=== PATIENT | female | born 1935 | race American Indian/Alaskan Native ===

== ENCOUNTER 2017-04-05 07:28 | Day surgery (SDC) | payer OTHER, MEDICAID, MEDICARE ==
[2017-03-28 10:40] VITALS: BMI 15.5
[2017-04-05] MEDS ORDERED: Lidocaine 2% Inj (20ml) ONE (08:42)
[2017-04-05] MEDS ORDERED: Nitroglycerin 50mg in D5W 0 MG/0 ML BOTTLE IV ONE (08:43)
[2017-04-05] MEDS ORDERED: Midazolam 2 MG/2 ML VIAL ONE (09:01)
[2017-04-05 09:11] LABS: INR 1.08 (0.93-1.08); PROTHROMBIN TIME 11.7 Seconds (9.9-11.8)
[2017-04-05 10:19] LABS: ARTERIAL BLOOD GAS HCO3 28.6 mmol/L (21-28); ARTERIAL BLOOD GAS HEMOGLOBIN 11.6 g/dL (11.7-17.4); ARTERIAL BLOOD GAS O2 CAPACITY 15.7 mL/dl (16-24); ARTERIAL BLOOD GAS O2 CONTENT 11.8 ML/dl (15-23); ARTERIAL BLOOD GAS O2 SAT 75.1 % (95-98); ARTERIAL BLOOD GAS PCO2 53 mm/Hg (35-45); ARTERIAL BLOOD GAS PH 7.34 (7.35-7.45); ARTERIAL BLOOD GAS TCO2 30.2 mmol.L (22-28)
[2017-04-05 10:22] LABS: ARTERIAL BLOOD GAS HCO3 29.3 mmol/L (21-28); ARTERIAL BLOOD GAS HEMOGLOBIN 10.8 g/dL (11.7-17.4); ARTERIAL BLOOD GAS O2 CAPACITY 14.7 mL/dl (16-24); ARTERIAL BLOOD GAS O2 CONTENT 11.3 ML/dl (15-23); ARTERIAL BLOOD GAS O2 SAT 76.8 % (95-98); ARTERIAL BLOOD GAS PCO2 53 mm/Hg (35-45); ARTERIAL BLOOD GAS PH 7.35 (7.35-7.45); ARTERIAL BLOOD GAS TCO2 30.9 mmol.L (22-28)
[2017-04-05 10:25] LABS: ARTERIAL BLOOD GAS HCO3 24.8 mmol/L (21-28); ARTERIAL BLOOD GAS HEMOGLOBIN 10.8 g/dL (11.7-17.4); ARTERIAL BLOOD GAS O2 CAPACITY 15.3 mL/dl (16-24); ARTERIAL BLOOD GAS O2 CONTENT 15.3 ML/dl (15-23); ARTERIAL BLOOD GAS O2 SAT 99.9 % (95-98); ARTERIAL BLOOD GAS PCO2 46 mm/Hg (35-45); ARTERIAL BLOOD GAS PH 7.34 (7.35-7.45); ARTERIAL BLOOD GAS TCO2 26.2 mmol.L (22-28)
[2017-04-05 12:18] VITALS: RESP 18; TEMP 97.1
[2017-04-05 14:35] VITALS: O2SAT 99
[2017-04-05 16:04] VITALS: BP 127/63; PULSE 68
--- NOTE | 2017-04-05 16:42 | CARD ---
APPROVED REPORT Procedure(s) performed: Complete Heart Catheterization HISTORY The patient is a 81 year-old female with a history of : most recent EF: 55%. (EF Method: Echocardiogram), hypertension , dyslipidemia . INDICATION The indication(s) include : pre-op clearance, abnormal ECG, valvular heart disease, other cardiac indications: Evaluation for . CASE TECHNIQUE The patient was brought electively to the Cardiac Catheterization Laboratory in a fasting state and was prepped and draped in a sterile manner. The right femoral groin was infiltrated with 2% Lidocaine subcutaneous anesthesia. A 6 Fr , 7 Fr sheath was inserted into the right femoral artery without difficulty. Coronary angiography was performed using coronary diagnostic catheters. The left coronary system was accessed and visualized with a Diagnostic catheter. The right coronary system was accessed and visualized with a Diagnostic catheter. The left ventricle was accessed and visualized with a [place] catheter. Left ventricular/Aortic Valve gradient assessed on pullback. An aortogram of the ascending aorta was performed. A Right Heart Catheterization was performed with a 7 Fr. [place]-Rayray catheter and pressure were recorded. A 7 sheath was inserted into the right femoral vein without difficulty. Coronary angiography was performed using coronary diagnostic catheters. Cardiac outputs were obtained by the Thermal Dilution method. Closure device was deployed with a 6 Fr Mynx without any complications. The patient tolerated the procedure well and there were no complications associated with the procedure. Vessel Analysis The patient's coronary anatomy is right dominant. The left main coronary artery is a large size vessel with intimal irregularities. The left main bifurcates to the left anterior descending and circumflex. The left anterior descending artery is a large size vessel with diffuse calcification noted throughout this vessel. There is a 45% stenosis in the mid segment. The first diagonal branch is a small size vessel with intimal irregularities. The second diagonal branch is a small size vessel with intimal irregularities. The circumflex artery is a medium size vessel with intimal irregularities. The first obtuse marginal branch is a small size vessel with intimal irregularities. The second obtuse marginal branch is a small size vessel with intimal irregularities. Left Ventricle The left ventricular ejection fraction is estimated to be 55%. The left ventricular end diastolic pressure is 18 mmHg. There was 18 mm Hg gradient upon pullback Right Heart Cath Findings The Right Atrial Pressure is 8/24/7 mmHg. The Right Ventricular Pressure is 52/5/11 mmHg. The Pulmonary Artery Pressure is 38/13/26 mmHg. The Pulmonary Catheter Wedge Pressure is 13/13/10 mmHg. PVR Wood units. The cardiac output and index were assessed using thermo dilution. The Cardiac Output is 1.90 L/min. The Cardiac index is 1.46 L/min/m2. Valves Aortic stenosis is present. The mean aortic valve gradient is 19.81 mmHg with a cardiac output of 1.9 L/min and a cardiac index of 1.46 L/min/m2. The aortic valve area is 0.47 cm2. There is Grade 2 aortic insufficiency present. Conclusion - Mild CAD - Low flow low gradient severe - Normal LVEF Recommendations - will need evaluation for TAVR Thankyou , and Anjali for letting me participate in the care of your patient
== END 2017-04-05 16:48 | disposition short-term general hospital (02) ==
LOC: CATH 07:28 → 2RSO 11:32 → CATH 16:48
PROVIDERS: ATTEND Internal Medicine Interventional Cardiology
DX: I35.2 Nonrheumatic aortic (valve) stenosis with insufficiency (principal); I25.10 Atherosclerotic heart disease of native coronary artery without angina pectoris; E78.5 Hyperlipidemia, unspecified; I10 Essential (primary) hypertension; E11.9 Type 2 diabetes mellitus without complications; J44.9 Chronic obstructive pulmonary disease, unspecified
CPT/HCPCS: 36415; 82803; 85610; 85730; 93460; 99152; 99153; C1760; C1769 ×5; C1887; C1894; C2629; J1644 ×2; J2250; J2405; J3010; J7030; Q9967